=== PATIENT | female | born 1960 | race African-American/Black ===

== ENCOUNTER 2017-12-04 16:06 | Emergency (ER) | payer OTHER ==
[~2017-12-04] VITALS: Ht 165.1 cm; Wt 87.0 kg
[2017-12-04 16:12] VITALS: BP 147/77
[2017-12-04] MEDS ORDERED: METHOCARBAMOL 500MG TABLET PO ONE (16:45)
[2017-12-04] MEDS ORDERED: KETOROLAC 60MG/2ML VIAL IM ONE (16:45)
[2017-12-04 17:20] LABS: BASOPHILS % 0.8 % (0.0-2.0); EOSINOPHILS % 0.6 % (0.0-5.0); HEMOGLOBIN. 12.9 g/dL (12.0-16.0); MEAN CORPUSCULAR HEMOGLOBIN 29.9 pg (28.0-32.0); MEAN CORPUSCULAR VOLUME 90.5 fL (81.0-99.0); MEAN PLATELET VOLUME 8.8 fl (7.4-10.4); MONOCYTES % 5.8 % (2.0-8.0); NEUTROPHILS % 57.8 % (40.0-76.0); PLATELET 321 x1000/uL (130-400); RED BLOOD CELL COUNT 4.32 mill/uL (4.2-5.4); RED CELL DISTRIBUTION WIDTH 13.1 % (11.6-14.6)
[2017-12-04 17:23] LABS: CHLORIDE 108 mEq/L (98-107)
== END 2017-12-04 19:02 | disposition left against medical advice (07) ==
LOC: ER 16:15
DX: I24.9 Acute ischemic heart disease, unspecified (principal); R79.89 Other specified abnormal findings of blood chemistry; F12.90 Cannabis use, unspecified, uncomplicated; Z88.6 Allergy status to analgesic agent; Z90.49 Acquired absence of other specified parts of digestive tract
CPT/HCPCS: 36415; 71111; 80053; 84484; 85025; 93005; 99285; J7030; J7040; Z7610; J1885

== ENCOUNTER 2017-12-05 00:35 | Inpatient (IN) | payer OTHER ==
[2017-12-05] VITALS (7 sets, daily range): BP systolic 129–163; BP diastolic 67–93
[~2017-12-05] VITALS: Ht 167.6 cm; Wt 76.8 kg
[2017-12-05] MEDS ORDERED: ONDANSETRON HCL 4MG/2ML VIAL IV ONE (02:30)
[2017-12-05] MEDS ORDERED: ACETAMINOPHEN 500MG TABLET PO ONE (02:30)
[2017-12-05] MEDS ORDERED: FAMOTIDINE 20MG/2ML VIAL IV ONE (02:30)
[2017-12-05] MEDS ORDERED: TRAMADOL 50MG TABLET PO ONE (02:30)
[2017-12-05 02:47] LABS: BASOPHILS % 0.5 % (0.0-2.0); CHLORIDE 107 mEq/L (98-107); EOSINOPHILS % 0.3 % (0.0-5.0); HEMATOCRIT. 40.4 % (36.0-48.0); HEMOGLOBIN. 13.5 g/dL (12.0-16.0); LYMPHOCYTES % 20.5 % (20.0-50.0); MEAN CORPUSCULAR HEMOGLOBIN 30.4 pg (28.0-32.0); MEAN PLATELET VOLUME 8.9 fl (7.4-10.4); MONOCYTES % 5.9 % (2.0-8.0); NEUTROPHILS % 72.8 % (40.0-76.0); PLATELET 254 x1000/uL (130-400); RED BLOOD CELL COUNT 4.45 mill/uL (4.2-5.4); RED CELL DISTRIBUTION WIDTH 13.3 % (11.6-14.6)
[2017-12-05 02:50] LABS: ETHANOL BLOOD < 10 mg/dL
[2017-12-05] MEDS ORDERED: VISCOUS LIDOCAINE 2% 15 ML UDC MM STA (03:51)
[2017-12-05] MEDS ORDERED: CLOPIDOGREL 75MG TABLET PO ONE (06:15)
[2017-12-05] MEDS ORDERED: ENOXAPARIN 80MG/0.8ML SYR SUBCUT ONE (06:15)
[2017-12-05] MEDS ORDERED: METOPROLOL TARTRATE 25MG TABLET PO ONE (06:15)
[2017-12-05 06:16] LABS: BASOPHILS % 0.3 % (0.0-2.0); HEMATOCRIT. 35.8 % (36.0-48.0); HEMOGLOBIN. 11.8 g/dL (12.0-16.0); LYMPHOCYTES % 13.1 % (20.0-50.0); MEAN CORPUSCULAR HEMOGLOBIN 29.7 pg (28.0-32.0); MEAN CORPUSCULAR VOLUME 90.5 fL (81.0-99.0); MEAN PLATELET VOLUME 8.8 fl (7.4-10.4); MONOCYTES % 3.9 % (2.0-8.0); NEUTROPHILS % 82.7 % (40.0-76.0); PLATELET 276 x1000/uL (130-400); RED BLOOD CELL COUNT 3.96 mill/uL (4.2-5.4)
[2017-12-05 06:23] LABS: CHLORIDE 106 mEq/L (98-107)
[2017-12-05 06:25] LABS: PARTIAL THROMBOPLASTIN TIME 22.9 sec (23.4-31.0); PROTHROMBIN TIME 10.5 sec (9.4-11.6)
[2017-12-05] MEDS ORDERED: MORPHINE SULFATE 4 MG/ML CPJ (NOT FOR IM USE) IV ONE (06:30)
[2017-12-05] MEDS ORDERED: ONDANSETRON HCL 4MG/2ML VIAL IV PRN (09:00)
[2017-12-05] MEDS ORDERED: ASPIRIN 325MG EC TABLET PO SCH (09:00)
[2017-12-05] MEDS ORDERED: PANTOPRAZOLE 40MG DR TABLET PO SCH (09:00)
[2017-12-05] MEDS ORDERED: METOPROLOL TARTRATE 50MG TABLET PO SCH (09:00)
[2017-12-05] MEDS ORDERED: POTASSIUM CHLORIDE 20MEQ TABLET SR PO NR ×2 (09:00→12:15)
[2017-12-05] MEDS ORDERED: ACETAMINOPHEN 325MG TABLET PO PRN (09:00)
[2017-12-05] MEDS ORDERED: ASPIRIN 81MG EC TABLET PO SCH (09:00)
[2017-12-05] MEDS: NITROGLYCERIN OINT 1GM/INCH UDPKT TD SCH ×2 (10:30→17:08)
[2017-12-05] MEDS ORDERED: POTASSIUM CHLORIDE INJ 40 MEQ in DEXT 5% WATER 250 ML IV ONE (11:00)
[2017-12-05] MEDS ORDERED: KCL 20MEQ/100ML PREMIX 100 ML IV SCH (12:00)
[2017-12-05 12:26] LABS: BG CARBOXYHEMOGLOBIN 1.1 % (0.5-1.5); BG DEOXYHEMOGLOBIN 10.3 % (0.0-5.0); BG FRACTION INSPIRED OXYGEN 28; BG HCO3 ACT 23.4 mmol/L (22.0-26.0); BG METHEMOGLOBIN 0.3 % (0.0-1.5); BG OXYGEN SATURATION 89.6 % (92.0-98.5); BG OXYHEMOGLOBIN 88.3 % (94.0-97.0); BG PCO2 34.5 mmHg (35.0-45.0); BG PO2 55.9 mmHg (75.0-100.0); BG SAMPLE SITE RIGHT RADIAL; BG TOTAL HEMOGLOBIN 13.5 g/dL (12.0-18.0); BG VENT MODE NASAL CANNULA
[2017-12-05] MEDS ORDERED: LIDOCAINE HCL/PF 1% 2ML VIAL ONE (14:52)
[2017-12-05 18:37] LABS: CREATINE KINASE MB FRACTION 131.8 ng/mL (0.5-3.6)
[2017-12-05] MEDS ORDERED: ENOXAPARIN 80MG/0.8ML SYR SUBCUT SCH (21:00)
[2017-12-05] MEDS ORDERED: ATORVASTATIN CALCIUM 20MG TABLET PO SCH (21:00)
== END 2017-12-05 17:40 | disposition short-term general hospital (02) | DRG 133 ==
LOC: ER 00:35 → EDBEDREQTM 05:55 → EDBEDREQ 05:55 → 6WST 06:12 → EDBEDREQ 06:18 → EDBEDREQTM 06:18 → ENRESERV 07:00 → 6WST 08:43 → 3WST 09:35
PROVIDERS: ADMIT Internal Medicine; ATTEND Internal Medicine
DX: J96.00 Acute respiratory failure, unspecified whether with hypoxia or hypercapnia (principal); I21.4 Non-ST elevation (NSTEMI) myocardial infarction; I26.99 Other pulmonary embolism without acute cor pulmonale; G93.40 Encephalopathy, unspecified; E87.6 Hypokalemia; I10 Essential (primary) hypertension; R09.02 Hypoxemia; R79.1 Abnormal coagulation profile; F41.9 Anxiety disorder, unspecified; G90.8 Other disorders of autonomic nervous system; R73.9 Hyperglycemia, unspecified; R94.31 Abnormal electrocardiogram [ECG] [EKG]; D72.829 Elevated white blood cell count, unspecified; Z88.8 Allergy status to other drugs, medicaments and biological substances
CPT/HCPCS: 36415; 36600; 70450; 71045; 80048; 80053; 80061; 82375; 82550; 82553; 82805; 82962; 84484; 85025; 85379; 85610; 85730; 87040; 93005; 99291; G0482; J1650; J2270; J2405; J3480; J3490; J7040